=== PATIENT | male | born 1995 | race African-American/Black ===

== ENCOUNTER 2019-10-05 09:34 | Emergency (ER) | payer SELFPAY ==
[~2019-10-05] VITALS: Ht 175.3 cm; Wt 57.0 kg
[2019-10-05] MEDS ORDERED: ONDANSETRON HCL 4MG/2ML INJ IV STA (10:42)
[2019-10-05] MEDS ORDERED: SODIUM CHLORIDE 0.9% 1,000 ML IV ONE (10:42)
[2019-10-05] MEDS ORDERED: KETOROLAC 30MG/ML VIAL IV STA (10:42)
[2019-10-05] MEDS ORDERED: FAMOTIDINE 20MG/2ML VIAL IV STA (10:42)
[2019-10-05 11:04] LABS: CHLORIDE 96 mEq/L (98-107)
[2019-10-05 11:09] LABS: BASOPHILS % 0.1 % (0.0-2.0); HEMOGLOBIN. 14.8 g/dL (14.0-18.0); LYMPHOCYTES % 11.5 % (20.0-50.0); MEAN CORPUSCULAR HEMOGLOBIN 30.4 pg (28.0-32.0); MEAN CORPUSCULAR VOLUME 88.2 fL (80.0-94.0); MEAN PLATELET VOLUME 8.9 fl (7.4-10.4); MONOCYTES % 7.7 % (2.0-8.0); NEUTROPHILS % 80.7 % (40.0-76.0); PLATELET 231 x1000/uL (130-400); RED BLOOD CELL COUNT 4.88 mill/uL (4.7-6.1); RED CELL DISTRIBUTION WIDTH 13.7 % (11.6-14.6)
[2019-10-05 11:25] LABS: INR 1.1; PROTHROMBIN TIME 11.8 sec (9.6-11.0)
[2019-10-05 11:54] LABS: CLARITY URINE CLEAR (CLEAR); COLOR URINE YELLOW (YELLOW); KETONES URINE NEGATIVE (NEGATIVE); LEUKOCYTE ESTERASE URINE NEGATIVE (NEGATIVE); NITRITE URINE NEGATIVE (NEGATIVE); OCCULT BLOOD URINE NEGATIVE (NEGATIVE); PROTEIN URINE NEGATIVE (NEGATIVE); SPECIFIC GRAVITY URINE 1.006 (1.005-1.030); UROBILINOGEN URINE 0.2 E.U./dL (0.2-1.0)
[2019-10-05 14:28] VITALS: BP 131/76
== END 2019-10-05 14:42 | disposition home or self-care (01) ==
LOC: ER 09:34
DX: K52.9 Noninfective gastroenteritis and colitis, unspecified (principal); R11.2 Nausea with vomiting, unspecified; F17.290 Nicotine dependence, other tobacco product, uncomplicated; Z98.890 Other specified postprocedural states
CPT/HCPCS: 36415; 80053; 81003; 83690; 85025; 85610; 96374; 96375; 99283; J1885; J2405; J3490; J7030

== ENCOUNTER 2020-10-17 21:50 | Emergency (ER) | payer MEDICAID ==
[~2020-10-17] VITALS: Ht 177.8 cm; Wt 59.0 kg
[2020-10-18] MEDS ORDERED: TETANUS, DIPHTHERIA, PERTUSSIS VAC/PF 0.5ML (>7YR OLD) IM ONE (00:15)
[2020-10-18 00:45] VITALS: BP 122/72
== END 2020-10-18 00:48 | disposition home or self-care (01) ==
LOC: ER 21:50
DX: S01.111A Laceration without foreign body of right eyelid and periocular area, initial encounter (principal); V18.4XXA Pedal cycle driver injured in noncollision transport accident in traffic accident, initial encounter; Y93.55 Activity, bike riding; Y92.488 Other paved roadways as the place of occurrence of the external cause
CPT/HCPCS: 12011; 90471; 90715; 99283; A4217; Z7610

== ENCOUNTER 2025-03-06 09:45 | Emergency (ER) | payer MEDICAID ==
[~2025-03-06] VITALS: Ht 177.8 cm; Wt 55.0 kg
[2025-03-06 10:01] VITALS: TEMP 36.6; O2SAT 100
[2025-03-06] MEDS: BACITRACIN ZINC OINT UDPKT TOP ONE (11:15)
[2025-03-06] MEDS: LIDOCAINE HCL 1% 20ML VIAL INL ONE (11:15)
[2025-03-06] MEDS: TETANUS, DIPHTHERIA, PERTUSSIS VAC/PF 0.5ML (>10YR OLD) IM ONE (11:15)
[2025-03-06] MEDS: IBUPROFEN 600MG TABLET PO ONE (11:15)
[2025-03-06] MEDS ORDERED: BO1 TP (13:19)
[2025-03-06 13:44] VITALS: BP 113/72; PULSE 59; RESP 16; O2SAT 100
== END 2025-03-06 13:48 | disposition home or self-care (01) ==
LOC: ER 09:45
DX: S61.216A Laceration without foreign body of right little finger without damage to nail, initial encounter (principal); Z98.890 Other specified postprocedural states; X58.XXXA Exposure to other specified factors, initial encounter; Y93.89 Activity, other specified; Y92.89 Other specified places as the place of occurrence of the external cause; Y99.8 Other external cause status
CPT/HCPCS: 73130; 12001; 99283; J2003; Z7610 ×2